=== PATIENT | female | born 1955 | race Asian ===

== ENCOUNTER 2019-01-15 19:08 | Emergency (ER) | payer OTHER ==
[~2019-01-15] VITALS: Ht 154.9 cm; Wt 71.2 kg
[2019-01-15 19:29] VITALS: Ht 154.9 cm; Wt 71.2 kg
[2019-01-15 20:45] LABS: BASOPHIL % 0.4 % (0-2); PLATELET COUNT 324 x10^3mcL (130-400)
[2019-01-15 20:57] LABS: ALBUMIN 3.1 g/dL (3.4-5.0); BILIRUBIN TOTAL 0.4 mg/dL (0.20-1.00); CALCIUM 9.3 mg/dL (8.5-10.1); POTASSIUM SERUM 4.1 mmol/L (3.5-5.1); RED CELL DISTRIBUTION WIDTH 15.6 % (11.5-14.5); TOTAL PROTEIN, SERUM 7.3 g/dL (6.4-8.2)
[2019-01-15 20:59] LABS: CREATININE SERUM 8.7 mg/dL (0.6-1.0)
[2019-01-15] MEDS ORDERED: MECLIZINE HYDRO25 M1 PO (23:12)
[2019-01-15] MEDS ORDERED: COLACE100 MG PO (23:12)
[2019-01-15] MEDS ORDERED: DOXYCYCLINE HY100 MG PO (23:13)
[2019-01-15] MEDS ORDERED: CALCITRIOL0.5 MCG PO (23:13)
[2019-01-15] MEDS ORDERED: NEPHRO-VITE VITA1 EA PO (23:14)
[2019-01-15] MEDS ORDERED: VIAGRA50 MG PO (23:15)
[2019-01-15] MEDS ORDERED: TOPROL XL100 MG PO (23:16)
[2019-01-15] MEDS ORDERED: TES100 PO (23:16)
[2019-01-15] MEDS ORDERED: THEREMS1 TA1 PO (23:17)
[2019-01-15] MEDS ORDERED: CLONIDINE HCL0.2 MG PO (23:18)
[2019-01-15] MEDS ORDERED: LIPI20 PO (23:18)
[2019-01-15] MEDS ORDERED: CEPHALEXIN500 MG PO (23:19)
[2019-01-15] MEDS ORDERED: NEP (23:19)
[2019-01-15] MEDS ORDERED: HYDRALAZINE HCL25 MG PO (23:20)
[2019-01-15] MEDS ORDERED: FUROSEMIDE80 MG PO (23:20)
[2019-01-15] MEDS ORDERED: KLOR-CON M2020 MEQ PO (23:20)
[2019-01-16 02:57] VITALS: BP 145/85
== END 2019-01-16 04:30 | disposition short-term general hospital (02) ==
LOC: ED 19:08
PROVIDERS: Emergency Medicine
DX: I21.4 Non-ST elevation (NSTEMI) myocardial infarction (principal); J45.909 Unspecified asthma, uncomplicated; E11.9 Type 2 diabetes mellitus without complications; Z98.890 Other specified postprocedural states; Z88.8 Allergy status to other drugs, medicaments and biological substances
CPT/HCPCS: 82962; 83880; 85378; J1644; J2270; J7030; Q9967

== ENCOUNTER 2019-11-26 17:10 | Inpatient (IN) | payer OTHER ==
[~2019-11-26] VITALS: Ht 152.4 cm; Wt 72.6 kg
[~2019-11-26 17:10] MED LIST: CALCITRIOL0.5 MCG PO; CEPHALEXIN500 MG PO; CLONIDINE HCL0.2 MG PO; COLACE100 MG PO; DOXYCYCLINE HY100 MG PO; FUROSEMIDE80 MG PO; HYDRALAZINE HCL25 MG PO; KLOR-CON M2020 MEQ PO; LIPI20 PO; MECLIZINE HYDRO25 M1 PO; NEP; NEPHRO-VITE VITA1 EA PO; TES100 PO; THEREMS1 TA1 PO; TOPROL XL100 MG PO; VIAGRA50 MG PO
[2019-11-26 18:23] LABS: BASOPHIL % 0.7 % (0-2); PLATELET COUNT 279 x10^3mcL (130-400); RED CELL DISTRIBUTION WIDTH 16.9 % (11.5-14.5)
[2019-11-26 18:32] LABS: BILIRUBIN TOTAL 0.3 mg/dL (0.20-1.00); CALCIUM 9.1 mg/dL (8.5-10.1); CARBON DIOXIDE 30.2 mmol/L (21-32); POTASSIUM SERUM 3.8 mmol/L (3.5-5.1); TOTAL PROTEIN, SERUM 7.1 g/dL (6.4-8.2)
[2019-11-26 18:36] LABS: ALBUMIN 3.1 g/dL (3.4-5.0)
[2019-11-26 18:39] LABS: CREATININE SERUM 9.8 mg/dL (0.6-1.0)
[2019-11-26 20:53] LABS: FREE T4 1.02 ng/dL (0.76-1.46); FREE THYROXINE INDEX 2.2 ug/dL (1.4-4.5); T4(THYROXINE) 6.6 ug/dL (4.7-13.3)
[2019-11-26 20:56] LABS: T3 TOTAL 1.03 ng/mL
[2019-11-26 22:28] VITALS: BP 178/75
[2019-11-27 05:41] VITALS: BP 177/67
[2019-11-27 06:35] LABS: BASOPHIL % 0.6 % (0-2); PLATELET COUNT 244 x10^3mcL (130-400)
[2019-11-27 06:48] LABS: RED CELL DISTRIBUTION WIDTH 16.8 % (11.5-14.5)
[2019-11-27 06:50] LABS: CALCIUM 8.5 mg/dL (8.5-10.1); CARBON DIOXIDE 26.1 mmol/L (21-32); MAGNESIUM 2.8 mg/dL (1.8-2.4); POTASSIUM SERUM 3.3 mmol/L (3.5-5.1)
[2019-11-27 07:01] LABS: CREATININE SERUM 9.8 mg/dL (0.6-1.0)
[2019-11-27 08:48] VITALS: BP 121/58
[2019-11-27 12:32] VITALS: BP 170/72
[2019-11-27 14:00] VITALS: BP 104/48
[2019-11-27 17:06] VITALS: BP 122/54
[2019-11-27 18:37] LABS: microscopic required? YES; urine erythrocyte NEGATIVE (NEGATIVE)
[2019-11-27 20:27] VITALS: BP 152/62
[2019-11-28 06:03] VITALS: BP 148/64
[2019-11-28 06:34] LABS: CALCIUM 8.2 mg/dL (8.5-10.1); CARBON DIOXIDE 25.8 mmol/L (21-32); MAGNESIUM 2.8 mg/dL (1.8-2.4); PHOSPHOROUS 6.4 mg/dL (2.5-4.9); POTASSIUM SERUM 3.9 mmol/L (3.5-5.1)
[2019-11-28 06:35] LABS: CREATININE SERUM 10.1 mg/dL (0.6-1.0)
[2019-11-28 08:30] LABS: BASOPHIL % 0.7 % (0-2); PLATELET COUNT 235 x10^3mcL (130-400)
[2019-11-28 08:33] LABS: RED CELL DISTRIBUTION WIDTH 17.2 % (11.5-14.5)
[2019-11-28 08:45] VITALS: BP 173/73
[2019-11-28] MEDS ORDERED: BRILINTA90 M1 PO (10:25)
[2019-11-28] MEDS ORDERED: REN800 PO (10:26)
[2019-11-28] MEDS ORDERED: CORE25 PO (10:26)
[2019-11-28 13:50] VITALS: BP 159/64
[2019-11-28 15:49] VITALS: BP 150/60
== END 2019-11-28 16:50 | disposition home or self-care (01) | DRG 48 ==
LOC: ED 17:10 → DU 20:19
PROVIDERS: Emergency Medicine; Internal Medicine; ADMIT Family Medicine
PROC: 5A1D80Z Performance of Urinary Filtration, Prolonged Intermittent, 6-18 hours Per Day (ICD-10-PCS; principal; 2019-11-26)
PROC: 5A1D80Z Performance of Urinary Filtration, Prolonged Intermittent, 6-18 hours Per Day (ICD-10-PCS; 2019-11-27)
DX: G90.8 Other disorders of autonomic nervous system (principal); E11.22 Type 2 diabetes mellitus with diabetic chronic kidney disease; I27.20 Pulmonary hypertension, unspecified; E11.65 Type 2 diabetes mellitus with hyperglycemia; N18.6 End stage renal disease; I50.9 Heart failure, unspecified; I13.0 Hypertensive heart and chronic kidney disease with heart failure and stage 1 through stage 4 chronic kidney disease, or unspecified chronic kidney disease; I25.10 Atherosclerotic heart disease of native coronary artery without angina pectoris; E86.0 Dehydration; E78.5 Hyperlipidemia, unspecified; J45.909 Unspecified asthma, uncomplicated; I25.2 Old myocardial infarction; Z99.2 Dependence on renal dialysis; Z79.4 Long term (current) use of insulin; Z95.5 Presence of coronary angioplasty implant and graft; Z79.899 Other long term (current) drug therapy; Z90.710 Acquired absence of both cervix and uterus; Z98.86 Personal history of breast implant removal; Z98.49 Cataract extraction status, unspecified eye; Z87.891 Personal history of nicotine dependence
CPT/HCPCS: 82962; 83880; 84439; 97116-GP; 97530-GP; G0378; J1815; Q0092